=== PATIENT | male | born 1960 | race Caucasian/White ===

== ENCOUNTER 2018-12-15 05:27 | Outpatient (CLI) | payer BC, SELFPAY ==
[2018-12-16 10:09] LABS: PSA, Screening 0.7 ng/ml (0-3.5)
== END 2018-12-15 05:47 ==
PROVIDERS: PCP Emergency Medicine; Visit Provider Emergency Medicine
DX: Z12.5 Encounter for screening for malignant neoplasm of prostate (principal)
CPT/HCPCS: 36415; 84153

== ENCOUNTER 2019-05-18 11:49 | Outpatient (CLI) | payer BC, SELFPAY ==
--- NOTE | 2019-05-18 11:45 | DI.RAD_ITS ---
SYMPTOMS/DIAGNOSIS: SHORTNESS OF BREATH, R06.02 PA AND LATERAL CHEST: The heart is normal in size. The lungs are clear. The mediastinal structures and pleura appear intact. CONCLUSION: Normal chest. No evidence of acute cardiopulmonary disease.
[2019-05-18 12:20] LABS: Abs Immature Grans 0.02 k/cumm (0.0-0.09); Absolute Basophil Count 0.02 k/cumm (0.0-0.2); Absolute Eosinophil Count 1.04 k/cumm (0.0-0.7); Absolute Lymphocyte Count 1.93 k/cumm (1.2-3.4); Absolute Monocyte Count 0.67 k/cumm (0.11-0.7); Absolute Neutrophil Count 4.64 k/cumm (1.2-6.7); Basophils % 0.2; Eosinophils % 12.5; HCT 38.6 % (40.0-50.0); HGB 13.3 g/dL (13.5-17.5); Immature Grans % 0.2; Lymphocytes % 23.2; Mean Corp. HGB Concentration 34.5 g/dL (32.0-36.0); Monocytes % 8.1; Neutrophils % 55.8; Platelet Count 261 x1000/uL (130-400); RBC 4.15 m/cumm (4.50-6.00); RBC Distribution Width 12.4 % (11.8-14.1); White Blood Cell Count 8.32 k/cumm (4.4-10.8)
[2019-05-18 12:45] LABS: Diff Comment Diff Reviewed; RBC Morphology Normal
[2019-05-18 12:55] LABS: D-Dimer 428 ng/mlFEU (<500)
== END 2019-05-18 12:09 ==
PROVIDERS: PCP Emergency Medicine; Visit Provider Emergency Medicine
DX: R06.02 Shortness of breath (principal)
CPT/HCPCS: 36415; 71046; 85025; 85379; 86140

== ENCOUNTER 2020-01-16 10:13 | Outpatient (CLI) | payer BC, SELFPAY ==
--- NOTE | 2020-01-16 09:55 | DI.RAD_ITS ---
EXAM: XR KNEE RT 3V AP,LAT,JUAN JOSE INDICATION: knee pain. COMPARISON: No exams were available for comparison TECHNIQUE: 2D digital imaging was performed. FINDINGS: Metallic eli are seen in the region of the tibial tubercle. There is [id number] narrowing of the medial femoral tibial joint and mild periarticular spurring. There is mild spurring at the ar ticular aspect of the patella. There may be a small joint effusion. IMPRESSION: [id number]-rv-[id number] degenerative changes. Previous surgery in the region of the tibial tubercle. DATA REPOSITORY: RADIATION DOSE DELIVERED:
== END 2020-01-16 10:33 ==
PROVIDERS: PCP Emergency Medicine; Visit Provider Physician Assistant
DX: M25.561 Pain in right knee (principal); M17.11 Unilateral primary osteoarthritis, right knee; Z98.890 Other specified postprocedural states
CPT/HCPCS: 73562

== ENCOUNTER 2021-05-22 01:44 | Outpatient (CLI) | payer BC, SELFPAY ==
--- NOTE | 2021-05-22 06:45 | DI.MRI_ITS ---
Exam(s) MR IAC BRAIN WO/W EXAM: MR IAC BRAIN WO/W CLINICAL HISTORY: persistent atypical nystagmus,vertigo,h55.09,r42 TECHNIQUE: Multiplanar multisequence MRI of the brain was performed. CONTRAST MATERIAL: IV Contrast: 17 ML of Dotarem contrast administered. COMPARISON: No exams were available for comparison FINDINGS: VENTRICLES AND EXTRA AXIAL SPACES: Normal in size and morphology for the patient's age. HEMORRHAGE: None. CEREBRAL PARENCHYMA: No focus of restricted diffusion to suggest acute infarct. No space-occupying le mariah identified. MIDLINE SHIFT: None. BRAINSTEM/CEREBELLUM: Normal. CALVARIUM: Normal. ENHANCEMENT: No suspicious enhancement identified. VISUALIZED PARANASAL SINUSES/MASTOIDS: Clear. LONE P[place] OF [place]: Normal flow void. PITUITARY GLAND: Unremarkable. OTHER FINDINGS: IAC/CP ANGLE: The internal auditory canals are within normal limits. The cerebellar pontine angles ar e unremarkable. No enhancing lesions are seen. Visualized portion of the facial nerves appear within normal limits. IMPRESSION: Unremarkable MRI of the brain. DATA REPOSITORY:
[2021-05-22] MEDS: Normal Saline Flush 10 ML SYR IVP (08:38)
[2021-05-22] MEDS: Gadoterate meglumine 20 ML VIAL 17 ML IVP (08:39)
== END 2021-05-22 02:04 ==
PROVIDERS: PCP Emergency Medicine; Visit Provider Emergency Medicine
DX: H55.09 Other forms of nystagmus (principal)
CPT/HCPCS: 70553

== ENCOUNTER 2022-06-03 01:48 | Outpatient (CLI) | payer BC, SELFPAY ==
[2022-06-03 09:49] LABS: HCT 41.9 % (40.0-50.0); HGB 14.5 g/dL (13.5-17.5); MCH 32.3 pg (27.0-33.0); MCHC 34.6 % (32.0-36.0); MCV 93 fL (80-95); MPV 10.2 fL (8.0-11.0); Platelet Count 210 10^3/uL (130-400); RBC 4.49 10^6/uL (4.36-5.78); RDW 12.4 % (11.8-14.1); RDW-SD 42.8 fL; WBC 6.24 10^3/uL (4.4-10.8)
[2022-06-03 09:50] LABS: Bilirubin Negative (Negative); Blood Negative (Negative); Clarity Clear (Clear); Glucose Negative (Negative); Ketones Negative (Negative); Leukocyte Esterase Negative (Negative); Nitrite Negative (Negative); Urobilinogen 0.2 EU/dL (Up TO 0.2)
[2022-06-03 10:19] LABS: ALT 24 U/L (16-63); AST 18 U/L (15-37); Albumin 4.2 g/dL (3.4-5.0); Alkaline Phosphatase 87 U/L (46-116); Anion Gap 6.6 mmol/L (3-11); BUN 18 mg/dL (7-18); Bilirubin, Total 0.6 mg/dL (0.2-1.0); CO2 29.4 mmol/L (21.0-32.0); CREATININE 1.1 mg/dL (0.70-1.30); Chloride 101 mmol/L (98-107); Glucose 93 mg/dL (74-106); Lipase 75 U/L (73-393); Potassium 4.4 mmol/L (3.5-5.1); Sodium 137 mmol/L (136-145); Total Protein 7.5 g/dL (6.4-8.2)
[2022-06-03 10:21] LABS: C-Reactive Protein < 0.05 mg/dL (0.0-0.3)
[2022-06-04 10:58] LABS: Hepatitis C Ab w Rflx HCV PCR Negative (Negative)
[2022-06-04 11:28] LABS: HIV-1/2 Ag & Ab Screen Negative (Negative)
== END 2022-06-03 01:49 | disposition home or self-care (01) ==
LOC: LBO 01:48
PROVIDERS: PCP Nurse Practitioner; Visit Provider Family Medicine
DX: R10.9 Unspecified abdominal pain (principal); Z11.59 Encounter for screening for other viral diseases; Z12.5 Encounter for screening for malignant neoplasm of prostate; Z13.6 Encounter for screening for cardiovascular disorders; I10 Essential (primary) hypertension
CPT/HCPCS: 36415; 80053; 83690; 85027; 86803; 87389; 81003; 84153; 86140

== ENCOUNTER 2023-10-28 04:43 | Outpatient (CLI) | payer BC, SELFPAY ==
[2023-10-28 16:58] LABS: HCT 39.8 % (40.0-50.0); HGB 13.3 g/dL (13.5-17.5); MCH 31.6 pg (27.0-33.0); MCHC 33.4 % (32.0-36.0); MCV 95 fL (80-95); MPV 9.8 fL (8.0-11.0); Platelet Count 210 10^3/uL (130-400); RBC 4.21 10^6/uL (4.36-5.78); RDW 12.7 % (11.8-14.1); RDW-SD 43.9 fL
[2023-10-28 18:13] LABS: Anion Gap 7.2 mmol/L (3-11); BUN 12 mg/dL (7-18); CO2 31.8 mmol/L (21.0-32.0); CREATININE 1.1 mg/dL (0.70-1.30); Calcium 9.1 mg/dL (8.5-10.1); Calculated LDL 134 mg/dL (<100); Chloride 99 mmol/L (98-107); Cholesterol 214 mg/dL (<200); Estimated GFR 76.37 (mL/min/1.73m2); Glucose 86 mg/dL (74-106); HDL Cholesterol 62 mg/dL (40-60); Potassium 4.2 mmol/L (3.5-5.1); Sodium 138 mmol/L (136-145); Triglyceride 91 mg/dL (<150)
== END 2023-10-28 04:44 | disposition home or self-care (01) ==
LOC: LBO 04:43
PROVIDERS: PCP Nurse Practitioner Family; Visit Provider Nurse Practitioner Family
DX: J45.30 Mild persistent asthma, uncomplicated (principal); R03.0 Elevated blood-pressure reading, without diagnosis of hypertension; Z00.00 Encounter for general adult medical examination without abnormal findings
CPT/HCPCS: 36415; 80048; 80061; 85027

== ENCOUNTER 2024-11-15 02:28 | Outpatient (CLI) | payer BC, SELFPAY ==
[2024-11-15 16:39] LABS: Hemoglobin A1C 5.5 % (<5.7)
[2024-11-15 17:15] LABS: ALT 22 U/L (16-63); AST 15 U/L (15-37); Alkaline Phosphatase 103 U/L (46-116); Anion Gap 7.8 mmol/L (3-11); BUN 15 mg/dL (7-18); Bilirubin, Total 0.57 mg/dL (0.2-1.0); CO2 29.2 mmol/L (21.0-32.0); CREATININE 1.3 mg/dL (0.70-1.30); Calcium 8.7 mg/dL (8.5-10.1); Calculated LDL 131 mg/dL (<100); Chloride 101 mmol/L (98-107); Cholesterol 230 mg/dL (<200); Estimated GFR 62.11 (mL/min/1.73m2); Glucose 140 mg/dL (74-106); HDL Cholesterol 69 mg/dL (40-60); Potassium 4.3 mmol/L (3.5-5.1); Sodium 138 mmol/L (136-145); Total Protein 7.6 g/dL (6.4-8.2); Triglyceride 154 mg/dL (<150)
[2024-11-17 18:27] LABS: PSA, Screening 1.2 ng/mL (<=4.5)
== END 2024-11-15 02:29 | disposition home or self-care (01) ==
PROVIDERS: PCP Nurse Practitioner Family; Visit Provider Nurse Practitioner Family
DX: Z00.00 Encounter for general adult medical examination without abnormal findings (principal); R03.0 Elevated blood-pressure reading, without diagnosis of hypertension; Z12.5 Encounter for screening for malignant neoplasm of prostate
CPT/HCPCS: 36415; 80053; 80061; 84153; 83036